=== PATIENT | male | born 1990 | race Caucasian/White ===

== ENCOUNTER 2020-06-30 11:42 | Outpatient (CLI) | payer OTHER ==
--- NOTE | 2020-06-30 12:07 | RAD ---
XR Knee Lt 4 View STANDARD HISTORY: Left knee pain FINDINGS: There are degenerative changes manifested by osteophyte formation and joint space narrowing. No fract ure or dislocation is identified.
== END 2020-06-30 11:43 | disposition home or self-care (01) ==
LOC: MADRAD 11:42
PROVIDERS: ATTEND Orthopaedic Surgery
DX: M17.12 Unilateral primary osteoarthritis, left knee (principal)